=== PATIENT | male | born 1965 | race Caucasian/White ===

== ENCOUNTER 2023-04-05 23:16 | Emergency (ER) | payer OTHER, SELFPAY ==
[2023-04-05 23:20] VITALS: BP 160/104
[2023-04-05 23:50] VITALS: BMI 33.5
[2023-04-05 23:58] VITALS: BP 136/93
[2023-04-06] VITALS: BP 161/96
--- NOTE | 2023-04-06 00:27 | ED.GENMED ---
History of Present Illness
<RADHA Thomas - Last Filed: 04/06/23 00:39>
General
Chief Complaint: Blood Pressure Problem
Source: patient
Exam Limitations: none
Time Seen by Provider: 04/06/23 00:05
Nursing documentation reviewed up to this point in time: agreed with
Travel History
Have you had any contact with someone who has COVID-19?: No
Do you have any symptoms of coronavirus? Fever > 100 degrees, chills, cough, shortness of breath, sore throat, loss of taste or smell, muscle aches, or headache?: No
History of Present Illness
History of Present Illness:
57 y/o M presents to ED after elevated BP and tingling in left arm. Patient reports he felt tingling in his entire left arm around 1800. He states he checked his BP around 2230 and was 158/101. Patient reports arm tingling has been constant but is
now less intense. He reports it is mostly in his hands now. Patient does not know his baseline BP. He reports he does not check his BP at home. He saw his FM for annual visit and saws his BP was 137/89. He was advised to monitor BP at home. Patient
is also reporting pain in the center of his chest around same time that was relieved after he rubbed his chest. Patient reports he is always stressed at work but he denies any new stressors. Reports he works at a [employer]. He denies being a
smoker. 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 Patient reports FMHX of afib in his father. Patient denies SOB, palpitations, weakness, pain, headache, dizziness, slurred speech, or facial numbness/drooping.
If applicable-neuro sx onset
Onset of symptoms known: Yes
Date of onset of symptoms: 04/05/23
Past History
<RADHA Thomas - Last Filed: 04/06/23 00:39>
Social History
Tobacco: Non-smoker
Review of Systems
<Lenin OzunaRADHA - Last Filed: 04/06/23 00:39>
Review of Systems
Allergies reviewed?: Yes
All Other Systems: ROS reviewed and negative except as documented in HPI and ROS
Constitutional: Reports no symptoms
EENT: Reports no symptoms
Respiratory: Reports no symptoms
Cardiac: Reports chest pain
ABD/GI: Reports no symptoms
: Reports no symptoms
Musculoskeletal: Reports no symptoms
Skin: Reports no symptoms
Neurological: Reports numbness and other (tingling)
Endocrine: Reports no symptoms
Hematologic/Lymphatic: Reports no symptoms
Psychiatric: Reports no symptoms
Phy Exam
<Nazabigail OzunaRADHA bradley - Last Filed: 04/06/23 00:39>
General Physical Exam
General Presentation: well appearing and no apparent distress
General age: appears stated age
General Skin: warm and dry
General Habitus: normal
General Mental: alert
General Hydration: appears well hydrated
Eye Exam
Eye Exam: PERRL, EOMI and conjunctiva normal
Cardiovascular Exam
Cardiovascular Exam: regular rate/rhythm, no edema, no gallop, no murmur and normal peripheral pulses
Pulmonary Exam
Pulmonary Exam: lungs clear, no respiratory distress, no rales, no crackles and no rhonchi
Gastrointestinal Exam
Gastrointestinal Exam: normal bowel sounds, non tender, soft and non distended
Neurological Exam
Neurological Exam: alert, oriented x3, CN II-XII intact, no motor deficits, speech normal and cerebellum intact
NIH Stroke Score
Level of Consciousness: 0 - Alert
LOC questions: 0-Answers both correctly
LOC Commands: 0-Performs both correctly
Best Gaze: 0-Normal
Visual Mccurdy: 0=Normal, no visual loss
Facial palsy: 0=Normal, symmetrical
Motor - Right Arm: 0=No drift 10 seconds
Motor - Left Arm: 0=No drift 10 seconds
Motor - Right Le-No drift 5 seconds
Motor - Left Le-No drift 5 seconds
Limb Ataxia: 0-Absent
Sensation: 0-Normal
Best Language: 0-No aphasia
Dysarthria: 0-Normal
Extinction and Inattention: 0-No abnormality
Total Score:: 0
Musculoskeletal Exam
Musculoskeletal Exam: full ROM, neuro vasc intact and other (5/5 strength in all extremities )
Skin Exam
Skin Exam: normal color, warm/dry and no rash
Psychiatric Exam
Psychiatric Exam: normal mood/affect
<Eliud Bustamante DO - Last Filed: 04/07/23 21:57>
NIH Stroke Score
Total Score:: 0
<Eliud Bustamante DO - Last Filed: 04/07/23 21:57>
Heart Score for Chest Pain Patients
STEMI patient?: No
History: Slightly or Non-Suspicious
ECG: Normal
Age: >45 - <65 years
Risk Factors: 1 or 2 Risk Factors
Troponin: </= Normal Limit
Heart Score for Chest Pain Patients: 2
Heart Score Risk: 2.5% MACE over next 6 weeks
Course
<RADHA Thomas - Last Filed: 04/06/23 00:39>
Orders/Labs/Results
Orders:
Orders
04/05/23 23:23
Electrocardiogram (*1) Urgent
Reason for Study: Hypertension, Benign
EKG- Treatment ONCE
04/06/23 00:46
Complete Blood Count/With Diff Urgent
Comprehensive Metabolic Panel Urgent
Magnesium Urgent
PTT Urgent
Prothrombin Time Urgent
TSH Urgent
Troponin I Urgent
04/06/23 01:46
CR Chest - 2 Views Urgent
Comment:
Reason For Exam: palpitations
Abnormal Lab Results
04/06/23
00:46
RBC 4.21 L 10^6/uL
(4.70-6.10)
Hct 38.8 L %
(39.0-52.0)
MCH 33.7 H pg
(27.0-31.0)
Absolute Monos (auto) 0.7 H 10^3/uL
(0.1-0.6)
Immature Gran % 0.6 H %
(0-0.5)
Monocytes % 10.1 H %
(1.7-9.3)
04/06/23 00:46
04/06/23 00:46
Vital Signs
Initial and Last Documented VS:
Initial Vital Signs
Temp Pulse Resp BP Pulse Ox
97.8 F 72 18 160/104 100
04/05/23 23:20 04/05/23 23:20 04/05/23 23:20 04/05/23 23:20 04/05/23 23:20
Last Documented Vital Signs
Temp Pulse Resp BP Pulse Ox
97.8 F 64 14 137/94 97
04/05/23 23:20 04/06/23 01:30 04/06/23 01:30 04/06/23 01:30 04/06/23 01:30
<Eliud Bustamante, - Last Filed: 04/07/23 21:57>
Orders/Labs/Results
Orders:
Orders
04/05/23 23:23
Electrocardiogram (*1) Urgent
Reason for Study: Hypertension, Benign
EKG- Treatment ONCE
04/06/23 00:46
Complete Blood Count/With Diff Urgent
Comprehensive Metabolic Panel Urgent
Magnesium Urgent
PTT Urgent
Prothrombin Time Urgent
TSH Urgent
Troponin I Urgent
04/06/23 01:46
CR Chest - 2 Views Urgent
Comment:
Reason For Exam: palpitations
Abnormal Lab Results
04/06/23
00:46
RBC 4.21 L 10^6/uL
(4.70-6.10)
Hct 38.8 L %
(39.0-52.0)
MCH 33.7 H pg
(27.0-31.0)
Absolute Monos (auto) 0.7 H 10^3/uL
(0.1-0.6)
Immature Gran % 0.6 H %
(0-0.5)
Monocytes % 10.1 H %
(1.7-9.3)
04/06/23 00:46
04/06/23 00:46
Vital Signs
Initial and Last Documented VS:
Initial Vital Signs
Temp Pulse Resp BP Pulse Ox
97.8 F 72 18 160/104 100
04/05/23 23:20 04/05/23 23:20 04/05/23 23:20 04/05/23 23:20 04/05/23 23:20
Last Documented Vital Signs
Temp Pulse Resp BP Pulse Ox
97.8 F 64 14 137/94 97
04/05/23 23:20 04/06/23 01:30 04/06/23 01:30 04/06/23 01:30 04/06/23 01:30
<RADHA Thomas - Last Filed: 04/06/23 00:39>
MDM/Problems Addressed
Differential Diagnosis Includes:
OR
Stroke
Nerve compression/impingement
Mireillelt;Eliud Bustamante DO - Last Filed: 04/07/23 21:57>
*Critical Care Note
Total Time (30-74mins, 75-104mins- exclusive of procedures): Not Applicable
ED Attending Note
<RADHA Thomas - Last Filed: 04/06/23 00:39>
-
Portions of this chart may have been created with voice recognition software.� Occasional wrong word or��sound alike� substitutions may have occurred due to the inherent limitations of voice recognition software.
<Eliud Bustamante DO - Last Filed: 04/07/23 21:57>
ED Attending Note
Patient seen and examined by attending physician: Yes
I performed the substantive portion of visit, reviewed & personally made and approve the management plan that is documented in note by myself or JESSE.: Yes
ED Attending Note:
Pleasant 57-year-old male that presents with elevated blood pressure that began around 6 PM this evening. He states that he had tingling down his left arm. He reports that his blood pressure was 158/101 when he checked at 11:30 PM. He states that
the tingling has mostly subsided but still feels minimal tingling. Patient reported reproducible midsternal chest pain around 6 PM that has since resolved. 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
changed. He is not a smoker, does not drink alcohol in excess or do drugs. He has not seen by cardiology. Denies any cardiac family history other than atrial fibrillation in his father. Patient was seen in conjunction with the PA student. I
have reviewed and agree with the history and treatment plan presented. On my independent physical exam, patient is awake, alert, and oriented x3, in no acute extreme distress at time of exam. Heart is regular rate and rhythm. Lungs are clear to
auscultation bilaterally without wheezes rales or rhonchi present.
Vital signs are stable. Patient not hypoxic
Nursing note reviewed. I agree with nursing documentation up to this point in time.
Home Meds and allergies reviewed.
NUMBER AND COMPLEXITY OF PROBLEMS ADDRESSED AT THE ENCOUNTER
� Chronic conditions affecting care:
� Acute Exacerbation and/or Progression of Chronic Illness:
� Differential Diagnosis includes:
AMOUNT AND/OR COMPLEXITY OF DATA TO BE REVIEWED AND ANALYZED
I performed an independent evaluation of the following and my interpretation is:
EKG: EKG shows normal sinus rhythm rate of 61 with normal intervals, normal axis. No evidence of acute ischemia present.
CT:
X-rays:
Ultrasound:
Laboratory Studies: Troponin is normal
Other:
Review of other/old records:
Clinical information was obtained by an independent historian:
Prescriptions/Medications Considered but not given:
Further testing considered but not performed:
RISK OF COMPLICATIONS AND/OR MORBIDITY OR MORTALITY OF PATIENT MANAGEMENT
Social determinants of health affecting care: Good Social Support present at the bedside
Discussion with other providers:
Escalation of care including admission/observation vs risk of discharge considered:
CRITICAL CARE NOTE:
Total Time (exclusive of procedures):
Update:
Discharge Plan
Departure
Patient Disposition: Home (Routine Discharge)
Date of Disposition: 04/06/23
Time of Disposition: 01:45
Patient with high blood pressure during this ER visit?: Yes
Condition: Good
Discharge Problem:
Palpitations, Chest pain
Instructions: High Blood Pressure (DC), Chest Pain CBC Follow Up, Heart Palpitations
Referrals:
[facility] [Provider Group]
UNKNOWN - PT DOES,NOT KNOW [Family Provider] -
Activity Restrictions/Additional Instructions:
It was a pleasure meeting you and taking part in your care. We hope for your continued healing and wellness.
Please read discharge instructions in their entirety. However, they are for general education and may not describe your exact diagnosis at discharge. Information on your ER visit and medical conditions were discussed with you along with appropriate
follow up information...
If indicated, please take your medications as instructed and indicated on discharge paperwork.
Please schedule a follow up appointment as directed. Call to schedule an appointment
Please return to the emergency department with ANY change in, persisting, or worsening of symptoms. If any of your symptoms do not improve, or persist, or become more severe within 6-12 hours, please return to the emergency department for further
care.
Please return to the emergency department if you develop a headache, neck pain/stiffness, fever greater than 100.4F, chest pain, shortness of breath, persistent nausea, vomiting, slurred speech, difficulty walking, numbness/tingling, weakness, signs
of infection or any other symptoms that are worrisome to you.
If you have any questions or concerns please do not hesitate to call the Hospital at or E-mail me directly at [email or web address]
Interventions
Interventions:
*Risk Screen - Suicide Last Done: 04/05/23 23:20
*General Assessment Last Done: 04/05/23 23:50
*Neglect/Abuse Screening Last Done: 04/05/23 23:20
ED- Fall Risk Assessment Last Done: 04/05/23 23:50
*ED COVID-19 Vaccine History Last Done: 04/05/23 23:50
*Nursing Disposition Last Done: 04/06/23 02:34
ED- Cardiac Assessment Last Done: 04/05/23 23:50
ED- Neurological Assessment Last Done: 04/05/23 23:50
ED- Pulmonary Assessment Last Done: 04/05/23 23:50
Discharge Date and Time
Discharge Date/Time: 04/06/23 02:36
[2023-04-06 00:30] VITALS: BP 139/93
[2023-04-06 01:00] VITALS: BP 137/88
[2023-04-06 01:06] LABS: INR 1.13; PT 14.3 Sec (11.4-14.6)
[2023-04-06 01:07] LABS: APTT 32.1 Sec (23.4-35.0)
[2023-04-06 01:08] LABS: ALT (SGPT) 25 U/L (0-50); AST (SGOT) 28 U/L (17-59); Albumin 3.7 g/dl (3.5-5.0); Alkaline Phosphatase 73 U/L (38-126); Blood Urea Nitrogen 17 mg/dl (9-20); Calcium 9.4 mg/dl (8.4-10.2); Carbon Dioxide 29 mmol/L (22-30); Chloride 102 mmol/L (98-107); Estimated Creatinine Clearance > 125 ml/min; Glucose 93 mg/dl (70-99); Magnesium 2.1 mg/dl (1.6-2.3); Potassium 3.8 mmol/L (3.5-5.1); Sodium 137 mmol/L (135-145); Total Bilirubin 1.1 mg/dl (0.2-1.3); Total Protein 6.7 g/dl (6.3-8.2); eGFR > 60.00
[2023-04-06 01:09] LABS: % Basophils 0.6 % (0-2); % Eosinophils 4.3 % (0-6); % Immature Granulocytes 0.6 % (0-0.5); % Lymphocytes 31.9 % (20.5-51.1); % Monocytes 10.1 % (1.7-9.3); % Neutrophils 52.5 % (42.2-75.2); Absolute Eosinophils 0.3 10^3/uL (0-0.7); Absolute Lymphocytes 2.3 10^3/uL (1.2-3.4); Absolute Monocytes 0.7 10^3/uL (0.1-0.6); Absolute Neutrophils 3.8 10^3/uL (1.4-6.5); Hematocrit 38.8 % (39.0-52.0); Hemoglobin 14.2 g/dL (13.0-18.0); Mean Corp Hgb Conc. 36.6 g/dL (33.0-37.0); Mean Corpuscular Hgb 33.7 pg (27.0-31.0); Mean Corpuscular Volume 92.2 fL (80.0-94.0); Mean Platelet Volume 10.3 fL (7.4-10.4); Nucleated Red Blood Cells % 0 % (-); Platelet Count 196 10^3/uL (130-400); Red Blood Cell Count 4.21 10^6/uL (4.70-6.10); Red Cell Dist. Width 11.5 % (11.5-14.5); White Blood Cell Count 7.2 10^3/uL (4.8-10.8)
[2023-04-06 01:21] LABS: Troponin I < 0.012 ng/ml
[2023-04-06 01:30] VITALS: BP 137/94
[2023-04-06 01:38] LABS: TSH 4.24 uIU/ml (0.47-4.68)
== END 2023-04-06 02:36 | disposition home or self-care (01) ==
LOC: EMR 23:16
PROVIDERS: EMERGENCY PHYSICIAN Student in an Organized Health Care Education/Training Program
DX: R00.2 Palpitations (principal); R03.0 Elevated blood-pressure reading, without diagnosis of hypertension; R20.2 Paresthesia of skin; R07.89 Other chest pain; R60.0 Localized edema; E78.5 Hyperlipidemia, unspecified; N40.0 Benign prostatic hyperplasia without lower urinary tract symptoms; Z86.16 Personal history of COVID-19
CPT/HCPCS: 99284; 71046; 80053; 83735; 84443; 84484; 85025; 85610; 85730; 93005